=== PATIENT | male | born 1995 | race Caucasian/White ===

== ENCOUNTER 2017-10-09 20:47 | Emergency (ER) | payer OTHER ==
[2017-10-09 21:08] VITALS: BP 138/74
--- NOTE | 2017-10-09 21:33 | UC ---
Throat Pain/Nasal Wilian HPI - HPI Summary HPI Summary: Pt presents with girlfriend with a sore throat, fever, body aches, and fatigue. 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 He tells me that 3 days ago he felt feverish and had a temp of 101F. Soon after he developed a sore throat, general body aches, and fatigue. His symptoms have persisted and he thinks he may have strep throat or the flu. He has been taking tylenol which has helped his fevers. He denies headache, dizziness, neck pain, cough, SOB, chest pain, abdominal pain, N/V/D/C, dysuria, numbness, or tingling. - History of Current Complaint Chief Complaint: UCGeneralIllness Stated Complaint: THROAT PAIN Time Seen by Provider: 10/09/17 21:10 Hx Obtained From: Patient Onset/Duration: Gradual Onset Severity: Moderate Pain Intensity: 4 Pain Scale Used: 0-10 Numeric - Allergies/Home Medications Allergies/Adverse Reactions: Allergies Allergy/AdvReac Type Severity Reaction Status Date / Time No Known Allergies Allergy Verified 10/09/17 21:00 Home Medications: Home Medications Koaphuz-[id number]-[id number] [Excedrin Extra Strength] 1 tab PO ONCE 10/09/17 [History Confirmed 10/09/17] Fluconazole [Fluconazole 200 mg tab] 200 mg PO WEEKLY 10/09/17 [History Confirmed 10/09/17] PMH/Surg Hx/FS Hx/Imm Hx Previously Healthy: Yes - Surgical History Surgical History: Yes Surgery Procedure, Year, and Place: inguinal hernia repair as infant - Social History Occupation: Employed Full-time Lives: With Family Alcohol Use: None Substance Use Type: None Smoking Status (MU): Never Smoked Tobacco - Immunization History Most Recent Influenza Vaccination: 2017 Review of Systems Constitutional: Fever, Fatigue Skin: Negative Eyes: Negative ENT: Sore Throat Respiratory: Negative Cardiovascular: Negative Gastrointestinal: Negative Motor: Negative Neurovascular: Negative Musculoskeletal: Negative Neurological: Negative Psychological: Negative All Other Systems Reviewed And Are Negative: Yes Physical Exam Triage Information Reviewed: Yes Appearance: Well-Appearing, Well-Nourished, Other: - Pt is talkative in NAD and appears well. Vital Signs: Initial Vital Signs Temp 102.8 F 10/09/17 21:02 Pulse 109 10/09/17 21:02 Resp 16 10/09/17 21:02 BP 138/74 10/09/17 21:02 Pulse Ox 99 10/09/17 21:02 Vital Signs Reviewed: Yes Eyes: Positive: Conjunctiva Clear. Negative: Conjunctiva Inflamed, Discharge ENT: Positive: Hearing grossly normal, Pharyngeal erythema, TMs normal, Tonsillar swelling - 2+, Uvula midline. Negative: Nasal congestion, Nasal drainage, TM bulging, TM dull, TM red, Tonsillar exudate, Hoarse voice, Sinus tenderness Neck: Positive: Supple, Nontender, No Lymphadenopathy Respiratory: Positive: Chest non-tender, Lungs clear, Normal breath sounds, No respiratory distress, No accessory muscle use Cardiovascular: Positive: RRR, No Murmur, Pulses Normal Neurological: Positive: Alert. Negative: Fatigued, Lethargic Psychological: Positive: Age Appropriate Behavior Skin: Negative: rashes Throat Pain/Nasal Course/Dx - Course Course Of Treatment: POC strep and influenza swabs were negative. Suspect viral illness, especially given many sick contacts working in the ED. Advised to continue resting, drinking fluids, and taking tylenol/ibuprofen for any fevers or discomfort. Follow up if symptoms persist or worsen. - Differential Dx/Diagnosis Differential Diagnosis/HQI/PQRI: Influenza, Mononucleosis, Pharyngitis, Tonsillitis, URI Provider Diagnoses: Viral pharyngitis Discharge - Discharge Plan Condition: Stable Disposition: HOME Patient Education Materials: Viral Syndrome (ED) Forms: *Work Release Referrals: No Primary Care Phys,NOPCP [Primary Care Provider] - Additional Instructions: If you develop an increasing fever, or fever that is not controlled with tylenol , SOB, chest pain, new or worsening symptoms - please call your PCP or go to the ED. Continue taking tylenol and ibuprofen OTC to manage your fever and discomfort.
== END 2017-10-09 22:00 | disposition home or self-care (01) ==
LOC: UCEAST 20:47
DX: J02.9 Acute pharyngitis, unspecified (principal); R50.9 Fever, unspecified; R53.83 Other fatigue
CPT/HCPCS: 87502; 87651; 99202; G0463

== ENCOUNTER 2017-10-11 21:42 | Emergency (ER) | payer OTHER ==
[2017-10-11 21:57] VITALS: BP 128/59
--- NOTE | 2017-10-11 22:00 | UC ---
Throat Pain/Nasal Wilian HPI <Alanna Salomon - Last Filed: 10/11/17 22:00> - HPI Summary HPI Summary: 21 year old male seen here two days ago for viral illness with symptoms of congestion, runny nose, myalgia and sore throat. He reports the myalgia and rhinorrhoea has resolved but he continued to have sore throat with solid food odynophagia but able to take fluids. He is feeling week from decreased po intake. No n/v/d/abd pain or any other complaints. - History of Current Complaint Onset/Duration: Gradual Onset, Lasting Days Cough: Nonproductive Associated Signs & Symptoms: Positive: Nasal Discharge, Fever. Negative: Drooling, Hoarseness <Tara Woodruff - Last Filed: 10/11/17 23:02> - History of Current Complaint Chief Complaint: UCGeneralIllness Stated Complaint: sore throat Time Seen by Provider: 10/11/17 21:59 - Allergies/Home Medications Allergies/Adverse Reactions: Allergies Allergy/AdvReac Type Severity Reaction Status Date / Time No Known Allergies Allergy Verified 10/11/17 21:48 Home Medications: Home Medications Acetaminophen TAB* [Tylenol TAB*] 325 mg PO Q4H PRN 10/11/17 [History Confirmed 10/11/17] Ibuprofen [Ibuprofen 200 MG] 200 mg PO ONCE 10/11/17 [History Confirmed 10/11/17 ] PMH/Surg Hx/FS Hx/Imm Hx - Surgical History Surgical History: Yes Surgery Procedure, Year, and Place: inguinal hernia repair as - Social History Alcohol Use: None Substance Use Type: None Smoking Status (MU): Never Smoked Tobacco - Immunization History Most Recent Influenza Vaccination: 2016 <Alanna Salomon - Last Filed: 10/11/17 22:00> Review of Systems Constitutional: Fever Skin: Negative Eyes: Negative ENT: Sore Throat Respiratory: Negative Cardiovascular: Negative Gastrointestinal: Negative Genitourinary: Negative Motor: Negative Neurovascular: Negative Musculoskeletal: Negative Neurological: Negative Psychological: Negative All Other Systems Reviewed And Are Negative: Yes <Tara Woodruff - Last Filed: 10/11/17 23:02> Physical Exam Vital Signs: Initial Vital Signs Temp 99.7 F 10/11/17 21:50 Pulse 101 10/11/17 21:50 Resp 20 12/14/17 21:50 BP 128/59 10/11/17 21:50 Pulse Ox 99 10/11/17 21:50 <Alanna Salomon - Last Filed: 10/11/17 22:00> Triage Information Reviewed: Yes Appearance: Well-Appearing, No Pain Distress Vital Signs: Initial Vital Signs Temp 37.6 C 10/11/17 21:50 Pulse 101 10/11/17 21:50 Resp 20 10/11/17 21:50 BP 128/59 10/11/17 21:50 Pulse Ox 99 10/11/17 21:50 ENT: Positive: Pharyngeal erythema, Uvula midline. Negative: Tonsillar swelling , Tonsillar exudate Respiratory: Positive: Chest non-tender, Lungs clear Cardiovascular: Positive: RRR, No Murmur, Pulses Normal Abdomen Description: Positive: Nontender, No Organomegaly, Soft Skin Exam: Normal <Tara Woodruff - Last Filed: 10/11/17 23:02> Throat Pain/Nasal Course/Dx - Course Course Of Treatment: Patient ordered for decadron and viscous lido. - Differential Dx/Diagnosis Differential Diagnosis/HQI/PQRI: Pharyngitis, Sinusitis, Tonsillitis, URI Provider Diagnoses: Pharyngitis <Tara Woodruff - Last Filed: 10/11/17 23:02> Discharge <Alanna Salomon - Last Filed: 10/11/17 22:00> <Tara Woodruff - Last Filed: 10/11/17 23:02> - Discharge Plan Condition: Good Disposition: HOME Prescriptions: Ibuprofen [Advil] 800 mg PO BID PRN #60 cap PRN Reason: Pain Patient Education Materials: Pharyngitis (ED) Forms: *Work Release Referrals: No Primary Care Phys,NOPCP [Primary Care Provider] - Additional Instructions: Take ibuprofen as prescribed
[2017-10-11] MEDS ORDERED: Lidocaine 2% VISCOUS* 15 ML UDC PO ONE (22:53)
[2017-10-11] MEDS ORDERED: Dexamethasone IV* 4 MG/ML 1 ML (4 MG) IM ONE (22:53)
== END 2017-10-11 23:11 | disposition home or self-care (01) ==
LOC: UCEAST 21:42
DX: J02.9 Acute pharyngitis, unspecified (principal)
CPT/HCPCS: 87651; 96372; 99213; G0463; J1100